=== PATIENT | female | born 1970 | race African-American/Black ===

== ENCOUNTER 2016-12-03 23:42 | Emergency (ER) | payer MEDICARE, OTHER ==
[~2016-12-03] VITALS: Ht 162.6 cm; Wt 59.0 kg
[~2016-12-03 23:42] MED LIST: LISI-607 PO; METF500T PO
[2016-12-04] MEDS ORDERED: DEXAMETHASONE SOD PHOSPHATE 4 MG INJ IM ONE (00:30)
[2016-12-04] MEDS ORDERED: PSEUDOEPHEDRINE HCL 30 MG TABLET PO ONE (00:30)
[2016-12-04] MEDS ORDERED: prednisoLONE 15 MG/5 ML UDC ONE (00:42)
[2016-12-04] MEDS ORDERED: HYDROCODONE/APAP 5-325MG TABLET PO ONE (00:45)
[2016-12-04] MEDS ORDERED: DEXAMETHASONE SOD PHOSPHATE 10 MG INJ ONE (00:50)
[2016-12-04] MEDS ORDERED: PSEUDOEPHEDRINE HCL 30 MG TABLET ONE (00:51)
--- NOTE | 2016-12-04 01:06 | NUR ---
mse completed, all meds admistered, mpt d/c'd home, aci rx x3 given. pt ambuolated w/o diff/took all belongings.
[2016-12-04 01:08] VITALS: BP 119/78
[2016-12-04] MEDS ORDERED: HYDROCODONE/APAP 5-325MG TABLET ONE (01:12)
== END 2016-12-04 01:05 | disposition home or self-care (01) ==
LOC: ER 23:46
DX: J20.9 Acute bronchitis, unspecified (principal); R51 Headache; I10 Essential (primary) hypertension; E11.9 Type 2 diabetes mellitus without complications; F32.9 Major depressive disorder, single episode, unspecified; R50.9 Fever, unspecified; Z90.710 Acquired absence of both cervix and uterus
CPT/HCPCS: 96372; 99283; A4663; J1100; J7510

== ENCOUNTER 2017-02-06 16:02 | Emergency (ER) | payer OTHER, MEDICAID ==
[~2017-02-06] VITALS: Ht 162.6 cm; Wt 70.8 kg
[2017-02-06] MEDS ORDERED: OXYCODONE/APAP 5-325 MG TABLET PO ONE (16:30)
[2017-02-06] MEDS ORDERED: DIAZEPAM 2 MG TABLET PO ONE (16:30)
[2017-02-06] MEDS ORDERED: IBUPROFEN 600 MG TABLET PO ONE (16:30)
--- NOTE | 2017-02-06 16:30 | NUR ---
PT SIGNED CONSENT FOR WAIVER, PLACED IN THE CHART.
[2017-02-06] MEDS ORDERED: OXYCODONE/APAP 5-325 MG TABLET ONE (16:42)
[2017-02-06] MEDS ORDERED: IBUPROFEN 600 MG TABLET ONE (16:42)
[2017-02-06] MEDS ORDERED: DIAZEPAM 5 MG TABLET ONE (16:42)
--- NOTE | 2017-02-06 18:25 | NUR ---
Patient discharged to home in stable conditon. Written and verbal after care instructions given. Patient verbalizes understanding of instructions.
[2017-02-06 18:34] VITALS: BP 148/86
== END 2017-02-06 18:28 | disposition home or self-care (01) ==
LOC: ER 16:03
DX: M54.5 Low back pain (principal); I10 Essential (primary) hypertension; E11.9 Type 2 diabetes mellitus without complications; F32.9 Major depressive disorder, single episode, unspecified; Z90.710 Acquired absence of both cervix and uterus; W01.0XXA Fall on same level from slipping, tripping and stumbling without subsequent striking against object, initial encounter; Y93.89 Activity, other specified; Y92.89 Other specified places as the place of occurrence of the external cause; Y99.8 Other external cause status
CPT/HCPCS: 72110; A4663